=== PATIENT | female | born 1970 ===

== ENCOUNTER 2021-10-30 21:56 | Emergency (ER) | payer OTHER, SELFPAY ==
[2021-10-30 22:05] VITALS: O2SAT 99
[2021-10-30 22:06] VITALS: BP 126/57; PULSE 124; O2SAT 99
[2021-10-30 22:13] VITALS: BP 126/57; PULSE 125; RESP 22; TEMP 36.8; O2SAT 99; BMI 35.1
[2021-10-30 22:30] VITALS: PULSE 128; O2SAT 99
[2021-10-30 23:00] VITALS: PULSE 116; O2SAT 94
--- NOTE | 2021-10-30 23:14 | ED.URI ---
HPI - URI/Sore Throat General Chief Complaint: Upper Respiratory Symptoms Stated Complaint: chills, aches, not feeling well Time Seen by Provider: 10/30/21 22:14 Source: patient Mode of arrival: Ambulatory History of Present Illness HPI Narrative: Patient is a 51-year-old female no past medical history she does not go to doctors is not vaccinated for COVID presenting with generalized body aches and not feeling well. She said she has had a cough ongoing for a couple of weeks. Today she feels generally run down and weak. She has no sore throat denies any shortness of breath. She is noted to be tachycardic with heart rate in the 120s. She denies any nausea or vomiting. She is declining to be tested for COVID, O2 sat remains above 90%. She states she has been unable to smell for a long time but her taste seems to be intact. Related Data Allergies Allergy/AdvReac Type Severity Reaction Status Date / Time carbamazepine [From Tegretol] Allergy Verified 10/31/21 00:10 Review of Systems Review of Systems Narrative: GENERAL: Generalized weakness, see HPI HEENT: Denies sinus pain, ear pain, sore throat, difficulty swallowing, neck pain RESPIRATORY: Denies dyspnea, cough, wheezing, hemoptysis, sputum. CARDIOVASCULAR: Denies chest pain, palpitations, orthopnea, edema GASTROINTESTINAL: Denies nausea, vomiting, abdominal pain, diarrhea, constipation, melena. : Denies dysuria, frequency, incontinence, hematuria, urinary retention, flank pain. MUSCULOSKELETAL: Denies weakness, joint pain, or bony pain SKIN: No rash, no erythema, no pruritus NEUROLOGIC: Denies weakness, dizziness, headache, numbness, change in speech, confusion PSYCHIATRIC: No concerning psychosocial issues. 12 point review of systems is negative except for those stated above and HPI Patient History Social History Smoking Status: Current every day smoker Smoking Status: Current every day smoker Substance Use Type: does not use Exam Initial Vital Signs Initial Vital Signs: Vital Signs Pulse Oximetry 99 10/30/21 22:05 GENERAL: Patient appears to not feel well HEENT: Head atraumatic,EOMI, pupils reactive, face symmetric, moist mucous membranes CARDIOVASCULAR: Tachycardic regular no murmur RESPIRATORY: Breath sounds equal bilaterally, no wheezes rales or rhonchi. ABDOMEN: Soft, nontender. Normoactive bowel sounds all 4 quadrants. No guarding or rebound. EXTREMITIES: Normal range of motion, no clubbing or edema. Neurovascularly intact NEUROLOGICAL: Alert and oriented x4.Normal gait and speech. SKIN: Warm, dry, no laceration, no petechiae, no rashes or lesions. Course Orders Ordered: ED Orders 10/30/21 23:15 Chest [XR chest 1V] Stat EKG-12 Lead Stat 10/30/21 23:30 CBC Auto Diff [Complete Blood Count AUTO DIFF] Stat CMP [Comprehensive Metabolic Panel] Stat Troponin & CK Cardiac Panel Stat 10/31/21 01:11 D Dimer Stat Discontinued Medications Sodium Chloride (Normal Saline 0.9%) 1,000 mls @ 1,000 mls/hr IV BOLUS ONE Stop: 10/31/21 00:14 Last Infusion: 10/31/21 00:57 Dose: 0 mls/hr Documented by: Admin: 10/30/21 23:29 Dose: 1,000 mls/hr Documented by: CELIA Sodium Chloride (Normal Saline 0.9%) 1,000 mls @ 1,000 mls/hr IV BOLUS ONE Stop: 10/31/21 01:51 Last Admin: 10/31/21 00:57 Dose: 1,000 mls/hr Documented by: CELIA Vital Signs Vital signs: Vital Signs - 8 hr 10/30/21 22:05 10/30/21 22:06 10/30/21 22:13 Temperature 98.2 F Pulse Rate 124 H 125 H Respiratory Rate 22 Blood Pressure 126/57 L 126/57 L Pulse Oximetry 99 99 99 10/30/21 22:30 10/30/21 23:00 10/30/21 23:30 Temperature Pulse Rate 128 H 116 H 123 H Respiratory Rate Blood Pressure Pulse Oximetry 99 94 97 10/31/21 00:00 10/31/21 00:30 10/31/21 01:00 Temperature Pulse Rate 114 H 120 H 120 H Respiratory Rate 12 Blood Pressure Pulse Oximetry 98 96 97 10/31/21 01:30 10/31/21 02:00 10/31/21 02:06 Temperature Pulse Rate 120 H 129 H 119 H Respiratory Rate 15 36 H 56 H Blood Pressure Pulse Oximetry 98 99 10/31/21 02:09 Temperature Pulse Rate Respiratory Rate Blood Pressure 125/65 Pulse Oximetry MDM - URI/Sore Throat Lab Data Result diagrams: 10/30/21 23:30 10/30/21 23:30 Labs: Lab Results 10/30/21 10/30/21 10/30/21 Range/Units 23:30 23:30 23:30 WBC 5.1 (4.5-11.0) X10^3/uL RBC 4.22 (4.0-5.2) X10^6/uL Hgb 13.0 (12.0-16.0) g/dL Hct 37.5 (36-46) % MCV 88.9 (80-100) fL MCH 30.8 (26-34) PG MCHC 34.6 (30-36) % RDW 12.9 (11.6-14.8) % Plt Count 147 L (150-400) X10^3/uL Neut % (Auto) 81.4 H (50-75) % Lymph % (Auto) 7.0 L (25-40) % Bollinger % (Auto) 10.8 (3-14) % Eos % (Auto) 0.3 L (2-4) % Baso % (Auto) 0.5 (0-2) % Neut # (Auto) 4200 (1102-7344) /uL Lymph # (Auto) 400 L (3724-4057) /uL Bollinger # (Auto) 600 (0-900) /uL Eos # (Auto) 0 (0-450) /uL Baso # (Auto) 0 (0-100) /uL D-Dimer 213 (<230) ng/mL Sodium 135 L (137-145) mmol/L Potassium 3.7 (3.4-5.1) mmol/L Chloride 107 (98-107) mmol/L Carbon Dioxide 21 L (22-32) mmol/L BUN 6 L (7-17) mg/dL Creatinine 0.60 (0.52-1.04) mg/dL Estimated GFR > 60.0 (>60) mL/min BUN/Creatinine Ratio 10.0 (6-22) Glucose 109 H (70-100) mg/dL Calcium 8.9 (8.4-10.2) mg/dL Total Bilirubin 0.7 (0.2-1.3) mg/dL AST 25 (14-36) IU/L ALT 15 (<35) IU/L Alkaline Phosphatase 54 (38-126) U/L Total Creatine Kinase 62 (30-135) U/L CK-MB (CK-2) TNP CK-MB (CK-2) Rel Index TNP Troponin I < 0.012 (0.01-0.034) ng/mL Total Protein 7.5 (6.3-8.2) g/dL Albumin 4.4 (3.5-5.0) g/dL Globulin 3.1 (1.7-4.1) g/dL Albumin/Globulin Ratio 1.4 (1.0-2.8) Imaging Data Chest x-ray: Radiologist's Impression: PROCEDURE:? XR CHEST 1V ? INDICATIONS:? cough and body aches ? TECHNIQUE:? One view of the chest was acquired.? ? COMPARISON:? None. ? FINDINGS:? ? Surgical changes and devices:? None.? ? Lungs and pleura:? Increased bronchovascular markings in bilateral hilar region are seen. ?Ill-defined opacity in right infrahilar region and left suprahilar region are seen.? No pleural effusions or pneumothorax.? ? Mediastinum:? Mediastinal contours appear normal.? Heart size is normal.? ? Bones and chest wall:? No suspicious bony lesions.? Overlying soft tissues appear unremarkable.? ? IMPRESSION:? Finding is concerning for developing bilateral perihilar infiltrates.? No pleural effusion or pneumothorax. ? ? Dictated by: Dakota Rodríguez M.D. on 10/30/2021 at 23:36 ? ? Approved by: Dakota Rodríguez M.D. on 10/30/2021 at 23:37? ECG Data Interpretation: Sinus tachycardia rate 122 OH interval 144 QRS 66 QTC 464 S wave noted in lead 1q wave noted in lead 3 with T-wave inversions no priors. MDM Narrative Medical decision making narrative: The patient was initially refusing COVID test but saying that she would blow her nose on a Kleenex we could test that. I have explained that is not how we do appropriate testing so she declined the COVID test. She has no nausea or vomiting. She has been feeling unwell for about 1 day. She is quite tachycardic. She is given 2 L IV fluid emergency department her heart rate does improve to 114 on monitor and she is tolerating oral fluids as well. She has a negative D dimer, despite findings in the EKG. She is not hypoxic or having any respiratory distress. Symptoms are more consistent with viral illness with body aches and generally not feeling well. She really has no complaints of shortness of breath. She is afebrile and blood pressure has been stable. X-ray does show bilateral perihilar infiltrates which could be viral. Patient has requested monoclonal antibodies. I have explained we do not give here and she would need positive COVID. Patient has been given blankets for comfort. At which point she ripped out her IV and is ready to go. Discharge Plan Departure Patient Disposition: Home Clinical Impression: Upper respiratory infection Instructions: DI for COVID-19 (Suspected or Confirmed ) Activity Restrictions/Additional Instructions: *You have been diagnosed with at this time have what is presumed to be COVID. *What to do: I do recommend that you get tested for. Please monitor your oxygen at home. If it decreases to 90% or below the knee need to return to the emergency department. Stay hydrated and take Tylenol or ibuprofen as directed if needed for fever. *Continue to take medications as directed 650 mg every 4-6 hours if needed for [id number] pain or fever Ibuprofen 600 mg and every 6-8 hours if needed for pain or fever *Follow up with your primary care provider in 2-3 days or call [phone] *Return to ER if you should have increasing shortness of breath, not tolerating fluids any new, worsening or concerning symptoms
--- NOTE | 2021-10-30 23:15 | DI.RAD.S_ITS ---
PROCEDURE: XR CHEST 1V INDICATIONS: cough and body aches TECHNIQUE: One view of the chest was acquired. COMPARISON: None. FINDINGS: Surgical changes and devices: None. Lungs and pleura: Increased bronchovascular markings in bilateral hilar region are seen. Ill-defined opacity in right infrahilar region and left suprahilar region are seen. No pleural effusions or pneumothorax. Mediastinum: Mediastinal contours appear normal. Heart size is normal. Bones and chest wall: No suspicious bony lesions. Overlying soft tissues appear unremarkable. IMPRESSION: Finding is concerning for developing bilateral perihilar infiltrates. No pleural effusion or pneumothorax. Dictated by: Dakota Rodríguez M.D. on 10/30/2021 at 23:36 Approved by: Dakota Rodríguez M.D. on 10/30/2021 at 23:37
[2021-10-30] MEDS: SODIUM CHLORIDE 0.9% 1,000 ML 1000 ML IV (23:29)
[2021-10-30 23:30] VITALS: PULSE 123; O2SAT 97
[2021-10-30 23:56] LABS: Add Manual Diff / Slide Review NO; Basophils Absolute Auto 0 /uL (0-100); Basophils Percent Auto 0.5 % (0-2); Eosinophils Absolute Auto 0 /uL (0-450); Eosinophils Percent Auto 0.3 % (2-4); Hematocrit 37.5 % (36-46); Lymphocytes Absolute Auto 400 /uL (1100-4500); Mean Corpuscular HGB Conc 34.6 % (30-36); Mean Corpuscular Hemoglobin 30.8 PG (26-34); Mean Corpuscular Volume 88.9 fL (80-100); Monocytes Absolute Auto 600 /uL (0-900); Monocytes Percent Auto 10.8 % (3-14); Neutrophils Absolute Auto 4200 /uL (1500-7000); Neutrophils Percent Auto 81.4 % (50-75); Platelet Count 147 X10^3/uL (150-400); Red Blood Cell Count 4.22 X10^6/uL (4.0-5.2); Red Cell Distribution Width 12.9 % (11.6-14.8); White Blood Cell Count 5.1 X10^3/uL (4.5-11.0)
[2021-10-31] VITALS (7 sets, daily range): BP systolic 125; BP diastolic 65; PULSE 114–129; RESP 12–56; O2SAT 96–99
[2021-10-31 00:05] LABS: Alanine Aminotransferase 15 IU/L (<35); Albumin 4.4 g/dL (3.5-5.0); Albumin Globulin Ratio 1.4 (1.0-2.8); Alkaline Phosphatase 54 U/L (38-126); Aspartate Aminotransferase 25 IU/L (14-36); Bilirubin Total 0.7 mg/dL (0.2-1.3); Blood Urea Nitrogen 6 mg/dL (7-17); Calcium 8.9 mg/dL (8.4-10.2); Carbon Dioxide 21 mmol/L (22-32); Chloride 107 mmol/L (98-107); Creatine Kinase 62 U/L (30-135); Estimated Glomerular Filt Rate > 60.0 mL/min (>60); Globulin 3.1 g/dL (1.7-4.1); Glucose 109 mg/dL (70-100); HEMOLYSIS < 15 (0-50); Potassium 3.7 mmol/L (3.4-5.1); Sodium 135 mmol/L (137-145); Total Protein 7.5 g/dL (6.3-8.2)
[2021-10-31 00:15] LABS: Troponin I < 0.012 ng/mL (0.01-0.034)
[2021-10-31] MEDS: SODIUM CHLORIDE 0.9% 1,000 ML 1000 ML IV (00:57)
[2021-10-31 01:36] LABS: D Dimer 213 ng/mL (<230)
--- NOTE | 2021-10-31 16:35 | PC.NURSE ---
pt called back to ask to clarify your discharge instructions.
== END 2021-10-31 02:23 | disposition home or self-care (01) ==
PROVIDERS: Emergency Provider Emergency Medicine
DX: J06.9 Acute upper respiratory infection, unspecified (principal); F17.200 Nicotine dependence, unspecified, uncomplicated
CPT/HCPCS: 36415; 71045; 80053; 82550; 82553; 84484; 85025; 85379; 93005; 93010; 96360; 96361; 99284

== ENCOUNTER 2022-07-07 12:40 | Emergency (ER) | payer OTHER, SELFPAY ==
[2022-07-07 13:04] VITALS: BP 122/81; PULSE 104; RESP 20; TEMP 36.3; O2SAT 98; BMI 32.9
[2022-07-07] MEDS: ACETAMINOPHEN 325 MG TABLET 975 MG PO (13:47)
--- NOTE | 2022-07-07 16:43 | PC.NURSE ---
Pt arrived by EMS. pt has called back into the department multiple times throughout her stay being verbally abusive to staff. Pt has refused all treatments that we have tried to provide for her. Pt states she does not want to wait any longer and she does not want to stay. Pt is laying face down on the carpet in the waiting area to cover her face because she refuses to wear a mask. Pt is demanding a ride home and demanding the hospital pay for it since she resides in [place]. Multiple attempts made to call pt a cab and pt refuses if she has to pay. Pt is awake alert oriented and ambulatory. Advised pt to call a friend if she needs to be taken home and pt states i dont want to do that. Pt currently still lying on carpet and refuses to get up if she has to wear a mask.
== END 2022-07-07 17:30 | disposition left against medical advice (07) ==
PROVIDERS: Emergency Provider Emergency Medicine
DX: R50.9 Fever, unspecified (principal)
CPT/HCPCS: 99283

== ENCOUNTER → 2023-07-16 06:41 | Outpatient (CLI) | payer OTHER, SELFPAY ==
--- NOTE | 2023-07-16 | DI.ECHO.S_ITS ---
[facility] +---------+ [facility] +---------+ : : [address] : : : : [id number] : : : : Phone: [phone] Echocardiogram Report + + :Name: TANNER DORAMN Study Date: 07/16/2023 Height: 62 in : :[facility] ReadingLocation: Weight: 190 lb : : Gender: Female BSA: 1.9 m2 : :: 1970 Age: 53 yrs BP: 110/79 mmHg: :Reason For Study: LOCALIZED EDEMA : :Ordering Physician: HANH, : :LAITH Performed By: Irasema Blake : :Referring: LAITH SCHAFER : + + Interpretation Summary 1) Normal left ventricular thickness, size, wall motion, and systolic function (EF 55-60%). 2) Normal right ventricular size and function. 3) There is mild mitral regurgitation. 4) No prior Echo available for comparison. Procedure: A two-dimensional transthoracic echocardiogram with color flow and Doppler was performed. The study quality was technically adequate. There is no prior echocardiogram noted for this patient. The patient was in sinus rhythm with heart rates between 54-71 bpm during the exam. Left Ventricle: The left ventricle is normal in size and wall thickness. The ejection fraction is estimated to be 55-60%. Left ventricular systolic function appears normal without focal wall motion abnormalities. Diastolic parameters suggest probable normal left ventricular diastolic function and normal filling pressures. Right Ventricle: The right ventricle is normal in size and function. Atria: The left atrial size is normal. Right atrial size is normal. There is no Doppler evidence for an interatrial shunt. Mitral Valve: The mitral valve leaflets appear mildly thickened, but open well. There is mild mitral regurgitation. Aortic Valve: The aortic valve is trileaflet. The aortic valve opens well. There is no aortic valve stenosis. No aortic regurgitation is present. Tricuspid Valve: The tricuspid valve is normal in structure and function. There is mild tricuspid regurgitation. The right ventricular systolic pressure is estimated to be at least 24 mmHg based on an estimated right atrial pressure of 3 mm Hg. Pulmonic Valve: The pulmonic valve leaflets are thin and pliable; valve motion is normal. There is a trace or physiologic amount of pulmonic regurgitation. Great Vessels: The aortic root is normal size. The dimensions of the ascending aorta are normal. The IVC is of normal diameter and collapses greater than 50% with a sniff. This suggests a low right atrial pressure of 3 mm Hg. Pericardium/ Pleura There is no pericardial effusion. There is no pleural effusion. MMode/2D Measurements & Calculations LVIDd: 5.3 cm LVOT diam: 2.1 cm LVIDs: 3.4 cm Ao root diam: 3.1 cm FS: 36.8 % asc Aorta Diam: 2.6 cm EPSS: 1.3 cm Ao Arch Diam (Prox Trans): 2.4 cm IVSd: 0.87 cm LVPWd: 0.52 cm LV chang. diameter/BSA (cm/m^2): 2.9 LV sys. diameter/BSA (cm/m^2): 1.8 LA A2 area: 22.6 cm2 RA long axis: 4.8 cm LA A4 area: 17.1 cm2 RA area: 16.9 cm2 LA length (vol): 5.4 cm RA vol: 50.6 ml LA vol: 60.1 ml RA : 27.1 ml/m2 LA vol index: 32.1 ml/m2 IVC diam: 0.92 cm RVD1 (basal): 3.2 cm RVD2 (mid): 2.6 cm TAPSE: 2.0 cm Doppler Measurements & Calculations Ao V2 max: 136.6 cm/sec LVOT Max Federico: 78.8 cm/sec Ao V2 mean: 103.3 cm/sec LV V1 max P.5 mmHg Ao max P.5 mmHg LV V1 VTI: 19.3 cm Ao mean P.5 mmHg JOSIAH(I,D): 2.1 cm2 Ao V2 VTI: 33.0 cm JOSIAH(V,D): 2.1 cm2 sev ratio: 0.58 JOSIAH indexed to BSA (cm^2/m^2): 1.1 MV E max federico: 108.5 cm/sec TR max federico: 227.4 cm/sec MV A max federico: 69.0 cm/sec TR max P.7 mmHg MV E/A: 1.6 PA V2 max: 101.7 cm/sec Med Peak E' Federico: 7.8 cm/sec PA V2 mean: 71.4 cm/sec E/E' med: 13.8 PA mean P.3 mmHg Lat Peak E' Federico: 14.6 cm/sec PA pr(Accel): 20.8 mmHg E/E' lat: 7.4 E/e' average: 10.6 MV dec time: 0.27 sec SV(LVOT): 69.2 ml Reading Physician:09:34 AM
== END ==
PROVIDERS: PCP Registered Nurse; Referring Provider Registered Nurse; Visit Provider Registered Nurse
DX: R60.0 Localized edema (principal); I34.0 Nonrheumatic mitral (valve) insufficiency
CPT/HCPCS: 93306